=== PATIENT | female | born 1950 | race Native Hawaiian/Other Pacific Islander ===

== ENCOUNTER 2017-12-17 20:42 | Emergency (ER) | payer OTHER ==
[2017-12-17 21:06] VITALS: TEMP 97.6
[2017-12-17] MEDS ORDERED: Naproxen 550 mg Tab PO STA (21:47)
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
[2017-12-17] MEDS ORDERED: Naproxen 550 mg Tab PO ONE (21:58)
[2017-12-18 01:11] VITALS: BP 118/78; PULSE 78; RESP 20
--- NOTE | 2017-12-18 08:21 | RAD ---
Date of service: 12/17/2017 PROCEDURE: Radiographs of the Left Shoulder HISTORY: Pain COMPARISON: No prior. FINDINGS: BONES: There is diffuse bone demineralization. Bone alignment is normal. There is no acute displaced fracture or bone destruction. JOINTS: Mild degenerative osteoarthrosis in the glenohumeral and acromioclavicular joints. SOFT TISSUES: Normal. OTHER FINDINGS: None. IMPRESSION: No acute displaced fracture or dislocation.
--- NOTE | 2017-12-18 08:26 | RAD ---
Date of service: 12/17/2017 PROCEDURE: Radiographs of the Lumbar Spine. HISTORY: pain COMPARISON: No prior. FINDINGS: BONES: The vertebral bodies are maintained in height. Normal alignment is maintained. DISC SPACES: There is narrowing of the L3-4 intervertebral disc space consistent with degenerative disc disease. Osteophytes are seen about this narrowed disc space. The remaining intervertebral disc spaces are maintained in height. OTHER FINDINGS: None. IMPRESSION: No evidence of fracture. Degenerative disc disease at L3-4.
--- NOTE | 2017-12-18 12:01 | CARD ---
APPROVED REPORT Date of service: 12/17/2017 EKG Measurement Heart [id number] <Conclusion> Sinus rhythm with premature supraventricular complexes Otherwise normal ECG
[2017-12-18 15:40] VITALS: O2SAT 98
== END 2017-12-17 22:30 | disposition home or self-care (01) ==
LOC: C.ER 20:42
DX: S46.912A Strain of unspecified muscle, fascia and tendon at shoulder and upper arm level, left arm, initial encounter (principal); S39.012A Strain of muscle, fascia and tendon of lower back, initial encounter; V89.2XXA Person injured in unspecified motor-vehicle accident, traffic, initial encounter